=== PATIENT | female | born 1970 | race Caucasian/White ===

== ENCOUNTER → 2020-03-27 | Outpatient (CLI) | payer SELFPAY ==
--- NOTE | 2020-03-27 13:15 | ASPSI_PTH ---
PATIENT: NEWTON CALLES LOC: [facility] U#:[id number] AGE/SX: 50/F ROOM: RE03/27/[address]: Dr. Jaylen Salomon MD : 1970 BED: DIS: 03/27/2020 SPEC #: [id number] RECD: 03/27/20 14:33 STATUS: SATNAM REShashi #: [id number] SIH: 03/27/20 13:[address]: Jaylen Salomon DEPT: CYTOLOGY RECD BY: Yazmin Allen ENTERED: 03/28/20 06:53 SP TYPE: ASP PITER KAUFMAN DR: Dr. Reza Sharma MD Tissues: A - Thyroid gland, NOS B - Thyroid gland, NOS Procedures: Surgery Specimen Level IV Cytospin Fluid Cytology Other HEADER OPERATION: Ultrasound-guided fine needle aspiration of right thyroid PRE-OP DIAGNOSIS: Hypothyroidism, thyroid nodule TISSUE SUBMITTED: A - FNA, right thyroid nodule fluid for cytology, B - FNA, right thyroid nodule, 6?slides DIAGNOSIS CYTOLOGY A. Right thyroid nodule fluid, ultrasound-guided FNA (cytospin and cell block): Consistent with benign cyst contents. See comment. B. Right thyroid nodule, ultrasound-guided FNA (smears): Consistent with benign follicular nodule with extensive cystic changes. Adequate for evaluation. See comment. SJ:rg 03/29/2020 COMMENT A. The specimen predominantly consists of macrophages. B. Correlation with clinical, radiologic findings and appropriate follow up are necessary. CYTOLOGY STUDY Slides are reviewed. CYTOLOGY GROSS A - Received is 3 ml of brown cloudy fluid labeled with the patient's name and and designated per the requisition as right thyroid. Submitted for cytology preparation including cell block. B - Received are six smears labeled with the patient's name and designated per the requisition as right thyroid. Submitted for staining. / janice 03/28/2020 TC:5 CPT: 50394, 04017, 70483
[2020-03-27 13:28] VITALS: BMI 34.2
== END | disposition home or self-care (01) ==
LOC: LABSPEC 14:42
PROVIDERS: PCP Family Medicine; Visit Provider Surgery
DX: E04.1 Nontoxic single thyroid nodule (principal)
CPT/HCPCS: 88108; 88161; 88305

== ENCOUNTER → 2020-07-02 14:06 | Outpatient (CLI) | payer SELFPAY ==
[2020-07-02 13:35] VITALS: BMI 32.5
[2020-07-02 15:48] LABS: Vitamin B12 571 pg/mL (211-911); Vitamin D,25 Hydroxy 42.8 ng/mL
[2020-07-02 17:12] LABS: Ferritin 74 ng/mL (8-252); Follicle Stimulating Hormone 5.4 mIU/mL; Thyroid Stim Hormone (TSH) 2.26 uIU/mL (0.358-3.74)
[2020-07-04 11:24] LABS: Thyroid Peroxidase AB < 9 IU/mL (0-34)
== END ==
PROVIDERS: PCP Family Medicine; Visit Provider Internal Medicine Endocrinology, Diabetes & Metabolism
DX: E04.1 Nontoxic single thyroid nodule (principal); K90.9 Intestinal malabsorption, unspecified; N95.1 Menopausal and female climacteric states; E55.9 Vitamin D deficiency, unspecified
CPT/HCPCS: 36415; 82306; 82607; 82728; 83001; 84439; 84443; 86376

== ENCOUNTER → 2024-06-27 | Outpatient (CLI) | payer SELFPAY ==
[2024-06-28 15:08] LABS: Angiotensin Convert Enzyme 30 U/L (14-82)
== END | disposition home or self-care (01) ==
PROVIDERS: PCP Family Medicine; Referring Provider Ophthalmology; Visit Provider Ophthalmology
DX: H02.422 Myogenic ptosis of left eyelid (principal)
CPT/HCPCS: 36415; 82164; 84439; 84443

== ENCOUNTER → 2024-09-05 | Outpatient (CLI) | payer SELFPAY ==
[2024-09-08 16:09] LABS: Acetylcholine Receptor Binding < 0.07 nmol/L (0.00-0.24)
== END | disposition home or self-care (01) ==
PROVIDERS: PCP Family Medicine; Referring Provider Ophthalmology; Visit Provider Ophthalmology
DX: H02.422 Myogenic ptosis of left eyelid (principal)
CPT/HCPCS: 84238